=== PATIENT | male | born 1995 | race Caucasian/White ===

== ENCOUNTER 2016-10-08 16:02 | Emergency (ER) | payer OTHER ==
[~2016-10-08] VITALS: Ht 190.5 cm; Wt 117.9 kg
--- NOTE | 2016-10-08 17:18 | RAD ---
Indication injury, pain. AP oblique lateral and sunrise views of the right obtained. No bony abnormality is seen
--- NOTE | 2016-10-08 17:57 | PHYS DOC ---
Past History Past Medical History: No Pertinent History Past Surgical History: No Surgical History Alcohol Use: None Drug Use: None Adult General Chief Complaint Chief Complaint: KNEE INJURY HPI HPI This 21-year-old man presents to history of having injured his right lower leg and knee playing softball on Friday, 3 days ago. He states that his knee still gives him some problems and some redness and road rash inferior and anterior to his right knee Review of Systems Review of Systems Constitutional: Denies fever or chills [] Eyes: Denies change in visual acuity, redness, or eye pain [] HENT: Denies nasal congestion or sore throat [] Respiratory: Denies cough or shortness of breath [] Cardiovascular: No additional information not addressed in HPI [] GI: Denies abdominal pain, nausea, vomiting, bloody stools or diarrhea [] : Denies dysuria or hematuria [] Musculoskeletal: Denies back pain or joint pain he does still have some pain in his knee. He has good ligamentous stability Integument: Skin abrasion inferior and anterior to the right knee Neurologic: Denies headache, focal weakness or sensory changes [] Endocrine: Denies polyuria or polydipsia [] Allergies Allergies Allergies Coded Allergies Type Severity Reaction Last Updated Verified No Known Drug Allergies 10/08/16 No Physical Exam Physical Exam Constitutional: Well developed, well nourished, no acute distress, non-toxic appearance. [] HENT: Normocephalic, atraumatic, bilateral external ears normal, oropharynx moist, no oral exudates, nose normal. [] Eyes: PERRLA, EOMI, conjunctiva normal, no discharge. [] Neck: Normal range of motion, no tenderness, supple, no stridor. [] Cardiovascular:Heart rate regular rhythm, no murmur [] Lungs & Thorax: Bilateral breath sounds clear to auscultation [] Abdomen: Bowel sounds normal, soft, no tenderness, no masses, no pulsatile masses. [] Skin: Large abrasion inferior and anterior to the right knee on the anterior lateral aspect of the lower leg it is crusted with a little erythema around it. Back: No tenderness, no CVA tenderness. [] Extremities: He has a crusted large abrasion measuring about 16 cm by about 10 cm on the anterior aspect of his right lower leg with crusting over it. There is some slight erythema around this as well he does have good ligamentous stability of his knee nor joint obvious effusion Neurologic: Alert and oriented X 3, normal motor function, normal sensory function, no focal deficits noted. [] Psychologic: Affect normal, judgement normal, mood normal. [] Current Patient Data Vital Signs Vital Signs Date Time Temp Pulse Resp B/P (MAP) Pulse Ox O2 Delivery O2 Flow Rate FiO2 10/08/16 16:10 98.6 78 18 98 Room Air EKG EKG [] Radiology/Procedures Radiology/Procedures X-ray examination of the knee is negative [] Impressions: Large crusted abrasion anterior right lower leg with some surrounding erythema and possibly early infection right knee contusion rule out internal injury Course & Med Decision Making Course & Med Decision Making Pertinent Labs and Imaging studies reviewed. (See chart for details) Wound was cleansed and dressed patient instructions to follow-up with his doctor problems persist Was placed on Keflex 500 mg by mouth every 8 hours [] Dragon Disclaimer Dragon Disclaimer This chart was dictated in whole or in part using Voice Recognition software in a busy, high-work load, and often noisy Emergency Department environment. It may contain unintended and wholly unrecognized errors or omissions. Departure Departure: Referrals: ANDRES LIMA (PCP) JORGE WESLEY MD October 08, 2016 17:57
[2016-10-08] MEDS ORDERED: NAPR500T PO (18:01)
[2016-10-08] MEDS ORDERED: CEPH-263 PO (18:01)
[2016-10-08 18:13] VITALS: BP 142/63
== END 2016-10-08 18:14 | disposition home or self-care (01) ==
LOC: ER 16:02
DX: S80.811A Abrasion, right lower leg, initial encounter (principal); X58.XXXA Exposure to other specified factors, initial encounter; Y93.64 Activity, baseball; Y92.89 Other specified places as the place of occurrence of the external cause; Y99.8 Other external cause status
CPT/HCPCS: 73564; 99284

== ENCOUNTER 2016-11-03 19:40 | Emergency (ER) | payer OTHER ==
[~2016-11-03] VITALS: Ht 190.5 cm; Wt 74.8 kg
[~2016-11-03 19:40] MED LIST: CEPH-263 PO; NAPR500T PO
[2016-11-03] MEDS ORDERED: IV NORMAL SALINE 1,000ML 1,000 ML ONE (20:17)
[2016-11-03] MEDS ORDERED: cefTRIAXone SODIUM 1 GM VIAL IV ONE (20:33)
[2016-11-03] MEDS ORDERED: IV NORMAL SALINE 50ML 50 ML ONE (20:33)
[2016-11-03 20:50] LABS: ALBUMIN 3.9 g/dL (3.4-5.0); CREATININE 1.3 mg/dL (0.7-1.3); GFR 69.7; POTASSIUM 3.6 mmol/L (3.5-5.1); TOTAL BILIRUBIN 1.3 mg/dL (0.2-1.0); TOTAL PROTEIN 7.9 g/dL (6.4-8.2)
[2016-11-03] MEDS ORDERED: ACETAMINOPHEN 500 MG TABLET PO ONE (21:00)
[2016-11-03] MEDS ORDERED: IV NORMAL SALINE 1,000ML 1,000 ML IV ONE (21:00)
[2016-11-03] MEDS: KETOROLAC 30 MG/ML VIAL. IM ONE ×2 (21:00→22:20)
[2016-11-03 22:35] VITALS: BP 160/92
[2016-11-03] MEDS ORDERED: IBUP600T16 PO (22:40)
[2016-11-03] MEDS ORDERED: AMOX500C PO (22:40)
--- NOTE | 2016-11-03 22:41 | PHYS DOC ---
Past History Past Medical History: No Pertinent History Past Surgical History: No Surgical History Alcohol Use: None Drug Use: None Adult General Chief Complaint Chief Complaint: FEVER HPI HPI Patient is a 21-year-old gentleman with a complaint of fever, sore throat, headache, nonproductive cough. Patient reports this started today. Patient reports fevers shakes chills. Nausea vomiting times one. Decreased appetite. No diarrhea. No dysuria frequency or urgency. No ear pain. Patient does have a history of hypertension and asthma. No diabetes liver or kidney rales. Patient has had no abdominal surgeries. Patient does smoke. Patient is allergic to any medications. Patient does have a history of migraines. Patient's physical exam was significant for a erythematous and tender right pharynx with a small amount of exudate. Patient does have some tender lymphadenopathy in the submandibular area and the right side. Patient has no nuchal rigidity. Patient has no photophobia. Patient has no Kernig's or Brudzinski sign. Patient's TMs were normal. Patient's heart was regular rate and rhythm. Lungs were clear without any wheezing rales or rhonchi. Patient is nontoxic appearing. Assessment and plan 21-year-old gentleman with likely strep pharyngitis. Patient was given IV fluids, Rocephin, Toradol and Tylenol to assist him with his fever and pain. Patient's labs were within normal limits. After medications patient's fever defervesced and he feels much improved. Patient is requesting to be discharged home. Patient was discharged home on amoxicillin for strep throat as well as ibuprofen to assist with his fever. Patient is nontoxic appearing. Plan was discussed with the patient and he is in complete agreement. Review of Systems Review of Systems Constitutional:fecver Eyes: Denies change in visual acuity, redness, or eye pain [] All other review systems are negative except as documented in the history of present illness portion. Current Medications Current Medications Current Medications Medications (Trade) Dose Ordered Sig/Brett Start Time Stop Time Status Last Admin Dose Admin Acetaminophen (Tylenol) 1,000 mg 1X ONCE 11/03/16 21:00 11/03/16 21:01 DC 11/03/16 20:34 1,000 MG Ceftriaxone Sodium 1 gm/ Sodium Chloride 50 ml @ 100 mls/hr 1X ONCE 11/03/16 21:00 11/03/16 21:29 DC 11/03/16 20:36 100 MLS/HR Ceftriaxone Sodium (Rocephin) 1 gm STK-MED ONCE 11/03/16 20:33 11/03/16 20:34 DC Ketorolac Tromethamine (Toradol) 30 mg 1X ONCE 11/03/16 23:00 11/03/16 23:01 11/03/16 22:37 30 MG Sodium Chloride 50 ml @ As Directed STK-MED ONCE 11/03/16 20:33 11/03/16 20:34 DC Allergies Allergies Allergies Coded Allergies Type Severity Reaction Last Updated Verified No Known Drug Allergies 10/08/16 No Physical Exam Physical Exam Constitutional: Well developed, well nourished, no acute distress, non-toxic appearance. [] HENT: Normocephalic, atraumatic, bilateral external ears normal, oropharynx erythematous with small amount of exudate. Eyes: PERRLA, EOMI, conjunctiva normal, no discharge. [] Neck: Normal range of motion, no tenderness, supple, no stridor. [] Cardiovascular:Heart rate regular rhythm, Lungs & Thorax: Bilateral breath sounds clear to auscultation [] Abdomen: Bowel sounds normal, soft, no tenderness, no masses, no pulsatile masses. [] Skin: Warm, dry, no erythema, no rash. [] Back: No tenderness, no CVA tenderness. [] Extremities: No tenderness, no cyanosis, no clubbing, ROM intact, no edema. [] Neurologic: Alert and oriented X 3, normal motor function, normal sensory function, no focal deficits noted. [] Psychologic: Affect normal, judgement normal, mood normal. [] Current Patient Data Vital Signs Vital Signs Date Time Temp Pulse Resp B/P (MAP) Pulse Ox O2 Delivery O2 Flow Rate FiO2 11/03/16 22:34 99.5 99 20 160/92 (114) 98 Room Air Lab Results Laboratory Tests Test 11/03/16 20:21 Sodium Level 138 mmol/L (136-145) Potassium Level 3.6 mmol/L (3.5-5.1) Chloride Level 99 mmol/L (98-107) Carbon Dioxide Level 30 mmol/L (21-32) Anion Gap 9 (6-14) Blood Urea Nitrogen 14 mg/dL (8-26) Creatinine 1.3 mg/dL (0.7-1.3) Estimated GFR (Cockcroft-Gault) 69.7 BUN/Creatinine Ratio 11 (6-20) Glucose Level 99 mg/dL (70-99) Calcium Level 9.0 mg/dL (8.5-10.1) Total Bilirubin 1.3 mg/dL (0.2-1.0) H Aspartate Amino Transferase (AST) 19 U/L (15-37) Alanine Aminotransferase (ALT) 30 U/L (16-63) Alkaline Phosphatase 112 U/L (46-116) Total Protein 7.9 g/dL (6.4-8.2) Albumin 3.9 g/dL (3.4-5.0) Albumin/Globulin Ratio 1.0 (1.0-1.7) EKG EKG [] Radiology/Procedures Radiology/Procedures [] Course & Med Decision Making Course & Med Decision Making Pertinent Labs and Imaging studies reviewed. (See chart for details) [] Dragon Disclaimer Dragon Disclaimer This chart was dictated in whole or in part using Voice Recognition software in a busy, high-work load, and often noisy Emergency Department environment. It may contain unintended and wholly unrecognized errors or omissions. Departure Departure: Impression: Primary Impression: Strep pharyngitis Disposition: 01 HOME, SELF-CARE Condition: IMPROVED Referrals: ANDRES LIMA (PCP) Patient Instructions: Strep Throat Scripts Ibuprofen (IBUPROFEN) 600 Mg Tablet 600 MG PO QID Y for PAIN, #20 Prov: BRIAN LINDSEY MD 11/03/16 Amoxicillin (AMOXICILLIN) 500 Mg Capsule 1 CAP PO TID, #30 CAP Prov: BRIAN LINDSEY MD 11/03/16 BRIAN LINDSEY MD Nov 03, 2016 22:41
[2016-11-03] MEDS ORDERED: KETOROLAC 30 MG/ML VIAL. IV ONE (23:00)
== END 2016-11-03 22:55 | disposition home or self-care (01) ==
LOC: ER 19:40
DX: J02.0 Streptococcal pharyngitis (principal); R11.2 Nausea with vomiting, unspecified; I10 Essential (primary) hypertension; E11.9 Type 2 diabetes mellitus without complications
CPT/HCPCS: 36415; 80053; 96365; 96366; 96375; 99285; J0696; J1885; J7030

== ENCOUNTER 2017-01-14 11:04 | Emergency (ER) | payer OTHER ==
[~2017-01-14] VITALS: Ht 190.5 cm; Wt 120.2 kg
[~2017-01-14 11:04] MED LIST changes: +AMOX500C PO; +IBUP600T16 PO
[2017-01-14] MEDS: ONDANSETRON ODT 4 MG TAB.RAPDIS PO ONE (11:49)
[2017-01-14] MEDS ORDERED: ONDA4TAB10 SL (12:20)
--- NOTE | 2017-01-14 12:23 | PHYS DOC ---
Past History Past Medical History: Hypertension, Migraines Past Surgical History: Tonsillectomy Alcohol Use: Occasionally Drug Use: None Adult General Chief Complaint Chief Complaint: NAUSEA/VOMITING/DIARRHEA HPI HPI Patient is a 21 year old M who presents with nausea and vomiting over the past 12-18 hours. He states that his symptoms are unassociated with any other symptoms. He does not have abdominal pain except when he is vomiting. His symptoms are minimal except when he is eating or drinking. He states that he has had symptoms like this in the past but is usually able to hold down water. Review of Systems Review of Systems Constitutional: Denies fever or chills [] Eyes: Denies change in visual acuity, redness, or eye pain [] HENT: Denies nasal congestion or sore throat [] Respiratory: Denies cough or shortness of breath [] Cardiovascular: No additional information not addressed in HPI [] GI: Negative except history of present illness. Last bowel movement was this morning. It was formed and easy to pass : Denies dysuria or hematuria [] Musculoskeletal: Denies back pain or joint pain [] Integument: Denies rash or skin lesions [] Neurologic: Denies headache, focal weakness or sensory changes [] Endocrine: Denies polyuria or polydipsia [] Family History Family History Noncontributory Current Medications Current Medications Current Medications Medications (Trade) Dose Ordered Sig/Brett Start Time Stop Time Status Last Admin Dose Admin Ondansetron HCl (Zofran Odt) 4 mg 1X ONCE 01/14/17 11:45 01/14/17 11:46 DC 01/14/17 11:49 4 MG Allergies Allergies Allergies Coded Allergies Type Severity Reaction Last Updated Verified No Known Drug Allergies 10/08/16 No Physical Exam Physical Exam Constitutional: Well developed, well nourished, no acute distress, non-toxic appearance. [] HENT: Normocephalic, atraumatic, bilateral external ears normal, oropharynx moist, no oral exudates, Eyes: EOMI, conjunctiva normal, no discharge. [] Cardiovascular:Heart rate regular rhythm, no murmur [] Lungs & Thorax: Bilateral breath sounds clear to auscultation [] Abdomen: Bowel sounds normal, soft, no tenderness, no masses, no pulsatile masses. [] Skin: Warm, dry, no erythema, no rash. [] Back: No tenderness, no CVA tenderness. [] Extremities: No tenderness, no cyanosis, no clubbing, ROM intact, no edema. [] Neurologic: Alert and oriented X 3, normal motor function, normal sensory function, no focal deficits noted. [] Psychologic: Affect normal, judgement normal, mood normal. [] Current Patient Data Vital Signs Vital Signs Date Time Temp Pulse Resp B/P (MAP) Pulse Ox O2 Delivery O2 Flow Rate FiO2 01/14/17 11:22 98.7 101 20 98 Room Air Lab Results Labs were declined Course & Med Decision Making Course & Med Decision Making Pertinent Labs and Imaging studies reviewed. (See chart for details) His symptoms resolved with ODT Zofran. He was able to tolerate oral fluids Dragon Disclaimer Dragon Disclaimer This chart was dictated in whole or in part using Voice Recognition software in a busy, high-work load, and often noisy Emergency Department environment. It may contain unintended and wholly unrecognized errors or omissions. Departure Departure: Impression: Primary Impression: Gastritis Disposition: 01 HOME, SELF-CARE Condition: STABLE Referrals: ANDRES LIMA (PCP) Patient Instructions: Gastritis, Adult Additional Instructions: Santana was seen in the emergency room for nausea and vomiting. No emergency medical condition was found on history or physical exam. He was given nausea medication and was able tolerate oral fluids. He was given a prescription for nausea medication and advised to follow-up with his primary care doctor in the next 1-2 weeks for further management. Is also advised to return the emergency room if he develops neurologic symptoms. Scripts Ondansetron (ZOFRAN ODT) 4 Mg Tab.rapdis 15 TAB SL Q8HRS, #15 TAB Prov: COBY SIERRA MD 01/14/17 Problem Qualifiers Primary Impression: Gastritis Gastritis type: unspecified gastritis Chronicity: acute Gastritis bleeding : without bleeding Qualified Codes: K29.00 - Acute gastritis without bleeding COBY SIERRA MD Jan 14, 2017 12:23
[2017-01-14 12:44] VITALS: BP 151/95
== END 2017-01-14 12:47 | disposition home or self-care (01) ==
LOC: ER 11:04
DX: K29.70 Gastritis, unspecified, without bleeding (principal); G43.909 Migraine, unspecified, not intractable, without status migrainosus; I10 Essential (primary) hypertension
CPT/HCPCS: 99283; Q0162